=== PATIENT | male | born 1980 | race Caucasian/White ===

== ENCOUNTER 2016-07-27 13:53 | Outpatient (CLI) ==
[2016-07-27 18:44] VITALS: BMI 34.2
== END 2016-07-27 13:54 | disposition home or self-care (01) ==
LOC: AMBL 13:53
PROVIDERS: ATTEND Internal Medicine
DX: R07.9 Chest pain, unspecified (principal); R42 Dizziness and giddiness; R51 Headache

== ENCOUNTER 2016-07-27 14:04 | Observation (INO) ==
[2016-07-27] MEDS ORDERED: TRANDATE IVP STA (14:19)
[2016-07-27 14:29] LABS: BASOPHILS % (AUTO) 0.2 % (0.0-3.0); EOSINOPHILS # (AUTO) 0.2 K/ul (0.0-0.7); EOSINOPHILS % (AUTO) 3.2 % (0.0-7.0); HEMATOCRIT 42.8 % (42.0-52.0); HEMOGLOBIN 14.4 g/dl (14.0-18.0); IMMATURE GRANULOCYTE % (AUTO) 0.2 % (0.0-5.0); LYMPHOCYTES # (AUTO) 1.3 K/uL (0.60-3.4); LYMPHOCYTES % (AUTO) 27.9 (10.0-50.0); MEAN CORPUSCULAR HEMOGLOBIN 28.3 pg (27.0-31.0); MEAN CORPUSCULAR HGB CONC 33.6 (31.8-35.4); MEAN CORPUSCULAR VOLUME 84.1 fl (80.0-94.0); MONOCYTES # (AUTO) 0.3 K/uL (0.4-2.0); NEUTROPHILS # (AUTO) 2.9 K/ul (2.0-6.9); NEUTROPHILS % (AUTO) 62.5; PLATELET COUNT 169 10^3/uL (140-440); RED BLOOD COUNT 5.09 10^6/ul (4.70-6.10); WHITE BLOOD COUNT 4.69 K/ul (4.2-10.2)
--- NOTE | 2016-07-27 14:46 | DI ---
Examination: Single radiographic image of the chest. Comparison: 06/06/2016. Reason for study: Pain. FINDINGS: No pneumothorax, pleural effusion, focal consolidation. The cardiomediastinal silhouette is not enlarged. The partially imaged osseous structures of the chest are unremarkable. Impression: No acute cardiopulmonary findings.
[2016-07-27 15:04] LABS: ALBUMIN 3.6 g/dL (3.4-5.0); ALBUMIN/GLOBULIN RATIO 1.06; ANION GAP 12.8; BILIRUBIN,TOTAL 0.65 mg/dL (0.00-1.20); BUN/CREATININE RATIO 13.86; CREATININE 1.01 mg/dL (0.60-1.10); POTASSIUM 3.8 mmol/L (3.5-5.1); TROPONIN I 0.015 ng/ml (0.0000-0.4000)
[2016-07-27 15:06] LABS: CREATINE KINASE MB 3.1 ng/ml (0.0-3.6)
--- NOTE | 2016-07-27 16:52 | ED.PDOC ---
General ED Provider: Dr. JANET OSEI Chief Complaint: Chest Pain Stated Complaint: chest pain Time Seen by Physician: 14:00 Mode of Arrival: Ambulance Information Source: Patient, EMT Exam Limitations: No limitations Nursing and Triage Documentation Reviewed and Agree: Yes Cardiovascular Complaint Exam - Chest Pain Complaint/Exam Onset: Gradual Duration: today Symptoms Are: Still present Length of Chest Pain Episodes: 30 min Initial Severity: Moderate Current Severity: Mild Location: Reports: Discrete, Midsternal Character: Reports: Aching Aggravating: Reports: None Alleviating: Reports: None Associated Signs and Symptoms: Denies: Diaphoresis, Nausea, Vomiting, Fever, Palpitations, Cough, Hemoptysis, Back pain, Abdominal pain, Dizziness, Short of air, Calf pain, Calf swelling History of Healthcare-Acquired Pneumonia: Reports: No AMI/ACS Risk Factors: Reports: None TAD Risk Factors: Reports: None Pulmonary Embolism Risk Factors: Reports: None Prior Care for this Complaint: No Recent Stress Test: No Recent Echo/LV Function: No JVD Present: No Subcutaneous Emphysema Present: No Diminshed Breath Sounds: No Reproducible Chest Wall Pain: No Bilateral Pulses Present: No Unequal Pulses Noted: No If Risk Factors for AMI/ACS Consider: EKG, Cardiac Enzymes Review of Systems - Review Of Systems Constitutional: Reports: No symptoms Eyes: Reports: No symptoms Ears, Nose, Mouth, Throat: Reports: No symptoms Respiratory: Reports: No symptoms Cardiac: Reports: Chest pain GI: Reports: No symptoms : Reports: No symptoms Musculoskeletal: Reports: No symptoms Skin: Reports: No symptoms Neurological: Reports: No symptoms Endocrine: Reports: No symptoms Hematologic/Lymphatic: Reports: No symptoms All Other Systems: Reviewed and Negative Past Medical History - Past Medical History Endocrine: Reports: None Cardiovascular: Reports: None Respiratory: Reports: None Hematological: Reports: None Gastrointestinal: Reports: None Genitourinary: Reports: None Neuro/Psych: Reports: None Musculoskeletal: Reports: None Cancer: Reports: None - Surgical History General Surgical History: Reports: None - Family History Family History: Reports: None - Social History Smoking Status: Never smoker Hx Substance Use: No Alcohol Screening: None Physical Exam - Physical Exam Appearance: Well-appearing, No pain distress, Well-nourished Eyes: MERLE, EOMI, Conjunctiva clear ENT: Ears normal, Nose normal, Oropharynx normal Respiratory: Airway patent, Breath sounds clear, Breath sounds equal, Respirations nonlabored Cardiovascular: RRR, Pulses normal, No rub, No murmur GI/: Soft, Nontender, No masses, Bowel sounds normal, No Organomegaly Musculoskeletal: Normal strength, ROM intact, No edema, No calf tenderness Skin: Warm, Dry, Normal color Neurological: Sensation intact, Motor intact, Reflexes intact, Cranial nerves intact, Alert, Oriented Psychiatric: Affect appropriate, Mood appropriate Critical Care Note - Critical Care Note Total Time (mins): 0 Course - Course Hematology/Chemistry: 07/27/16 14:15 07/27/16 14:15 Orders, Labs, Meds: Lab Review 07/27/16 14:15 WBC 4.69 RBC 5.09 Hgb 14.4 Hct 42.8 MCV 84.1 MCH 28.3 MCHC 33.6 RDW Coeff of Karissa 12.3 Plt Count 169 Immature Gran % (Auto) 0.2 Neut % (Auto) 62.5 Lymph % (Auto) 27.9 Alcorn % (Auto) 6.0 Eos % (Auto) 3.2 Baso % (Auto) 0.2 Immature Gran # (Auto) 0.0 Neut # 2.9 Lymph # 1.3 Alcorn # 0.3 L Eos # 0.2 Baso # 0.0 D-Dimer < 0.19 L Sodium 141 Potassium 3.8 Chloride 106 Carbon Dioxide 26 Anion Gap 12.8 BUN 14 Creatinine 1.01 Estimated GFR (MDRD) 85.00 BUN/Creatinine Ratio 13.86 Glucose 95 Calcium 9.0 Total Bilirubin 0.65 AST 17 ALT 24 Alkaline Phosphatase 83 Total Creatine Kinase 163 CK-MB (CK-2) 3.1 CK-MB (CK-2) % 1.72912 Troponin I 0.0150 Total Protein 7.0 Albumin 3.6 Globulin 3.4 Albumin/Globulin Ratio 1.06 Orders Category Date Time Status PLACE PATIENT OBSERVATION .TO MEDSURG (MONITORED BED ADMISSION 07/27/16 16: 46 Ordered ) EKG-(ED ONLY) Stat CARDIO 07/27/16 14:18 Completed EKG-(IP & OP ONLY) DAILY CARDIO 07/28/16 06:00 Ordered EKG-(IP & OP ONLY) DAILY CARDIO 07/29/16 06:00 Ordered EKG-(IP & OP ONLY) DAILY CARDIO 07/30/16 06:00 Ordered ACTIVITY .BR with BRP CARE 07/27/16 16:46 Ordered INTAKE & OUTPUT Q8HR CARE 07/27/16 16:47 Ordered NOTIFY PHYSICIAN OF CONSULT ONCE CARE 07/27/16 16:49 Ordered NPO REMINDER: LAB TEST ONCE CARE 07/27/16 16:50 Ordered TELEMETRY MONITORING TELE CARE 07/27/16 16:47 Ordered VITAL SIGNS Q8HR CARE 07/27/16 16:46 Ordered CONSULT PHYSICIAN [PHYSICIAN CONSULTATION] [CONS] CONSULTS 07/27/16 16:48 Ordered Routine REGULAR DIET DIETARY 07/27/16 Lunch Ordered ED IV/MEDIPORT/POWERPORT .ONCE EMERGENCY 07/27/16 14:18 Active CBC W/ AUTO DIFF DAILY@0600 LAB 07/28/16 06:00 Ordered CBC W/ AUTO DIFF DAILY@0600 LAB 07/29/16 06:00 Ordered CBC W/ AUTO DIFF DAILY@0600 LAB 07/30/16 06:00 Ordered CBC W/ AUTO DIFF DAILY@0600 LAB 07/31/16 06:00 Ordered CBC W/ AUTO DIFF DAILY@0600 LAB 08/01/16 06:00 Ordered CBC W/ AUTO DIFF DAILY@0600 LAB 08/02/16 06:00 Ordered CBC W/ AUTO DIFF DAILY@0600 LAB 08/03/16 06:00 Ordered CBC W/ AUTO DIFF DAILY@0600 LAB 08/04/16 06:00 Ordered CBC W/ AUTO DIFF DAILY@0600 LAB 08/05/16 06:00 Ordered CBC W/ AUTO DIFF DAILY@0600 LAB 08/06/16 06:00 Ordered CBC W/ AUTO DIFF DAILY@0600 LAB 08/07/16 06:00 Ordered CBC W/ AUTO DIFF DAILY@0600 LAB 08/08/16 06:00 Ordered CBC W/ AUTO DIFF DAILY@0600 LAB 08/09/16 06:00 Ordered CBC W/ AUTO DIFF DAILY@0600 LAB 08/10/16 06:00 Ordered CBC W/ AUTO DIFF DAILY@0600 LAB 08/11/16 06:00 Ordered CBC W/ AUTO DIFF DAILY@0600 LAB 08/12/16 06:00 Ordered CBC W/ AUTO DIFF DAILY@0600 LAB 08/13/16 06:00 Ordered CBC W/ AUTO DIFF DAILY@0600 LAB 08/14/16 06:00 Ordered CBC W/ AUTO DIFF DAILY@0600 LAB 08/15/16 06:00 Ordered CBC W/ AUTO DIFF DAILY@0600 LAB 08/16/16 06:00 Ordered CBC W/ AUTO DIFF Stat LAB 07/27/16 14:15 Completed COMPREHENSIVE METABOLIC PANEL DAILY@0600 LAB 07/28/16 06:00 Ordered COMPREHENSIVE METABOLIC PANEL DAILY@0600 LAB 07/29/16 06:00 Ordered COMPREHENSIVE METABOLIC PANEL DAILY@0600 LAB 07/30/16 06:00 Ordered COMPREHENSIVE METABOLIC PANEL DAILY@0600 LAB 07/31/16 06:00 Ordered COMPREHENSIVE METABOLIC PANEL DAILY@0600 LAB 08/01/16 06:00 Ordered COMPREHENSIVE METABOLIC PANEL DAILY@0600 LAB 08/02/16 06:00 Ordered COMPREHENSIVE METABOLIC PANEL DAILY@0600 LAB 08/03/16 06:00 Ordered COMPREHENSIVE METABOLIC PANEL DAILY@0600 LAB 08/04/16 06:00 Ordered COMPREHENSIVE METABOLIC PANEL DAILY@0600 LAB 08/05/16 06:00 Ordered COMPREHENSIVE METABOLIC PANEL DAILY@0600 LAB 08/06/16 06:00 Ordered COMPREHENSIVE METABOLIC PANEL DAILY@0600 LAB 08/07/16 06:00 Ordered COMPREHENSIVE METABOLIC PANEL DAILY@0600 LAB 08/08/16 06:00 Ordered COMPREHENSIVE METABOLIC PANEL DAILY@0600 LAB 08/09/16 06:00 Ordered COMPREHENSIVE METABOLIC PANEL DAILY@0600 LAB 08/10/16 06:00 Ordered COMPREHENSIVE METABOLIC PANEL DAILY@0600 LAB 08/11/16 06:00 Ordered COMPREHENSIVE METABOLIC PANEL DAILY@0600 LAB 08/12/16 06:00 Ordered COMPREHENSIVE METABOLIC PANEL DAILY@0600 LAB 08/13/16 06:00 Ordered COMPREHENSIVE METABOLIC PANEL DAILY@0600 LAB 08/14/16 06:00 Ordered COMPREHENSIVE METABOLIC PANEL DAILY@0600 LAB 08/15/16 06:00 Ordered COMPREHENSIVE METABOLIC PANEL DAILY@0600 LAB 08/16/16 06:00 Ordered COMPREHENSIVE METABOLIC PANEL Stat LAB 07/27/16 14:15 Completed CREATINE KINASE Q8H LAB 07/27/16 23:00 Ordered CREATINE KINASE Q8H LAB 07/28/16 07:00 Ordered CREATINE KINASE Stat LAB 07/27/16 14:15 Completed D-DIMER Stat LAB 07/27/16 14:15 Completed LIPID PANEL Timed LAB 07/28/16 06:00 Ordered TROPONIN I Q8H LAB 07/27/16 23:00 Ordered TROPONIN I Q8H LAB 07/28/16 07:00 Ordered TROPONIN I Stat LAB 07/27/16 14:15 Completed 0.9 % Sodium Chloride [Saline Flush] MEDS 07/27/16 14:18 Active 1 syr IVF PRN PRN Labetalol HCl [Trandate] MEDS 07/27/16 14:19 Discontinued 20 mg IVP ONCE STA Sodium Chloride 0.9% [Sodium Chloride] 1,000 ml MEDS 07/27/16 17:00 Ordered IV 75 mls/hr CHEST, 1V AP ONLY Stat RADS 07/27/16 14:18 Completed Medications Generic Name Dose Route Start Last Admin Trade Name Freq PRN Reason Stop Dose Admin Sodium Chloride 1,000 mls @ 75 mls/hr 07/27/16 17:00 Sodium Chloride IV .[id number] ELLIE Sodium Chloride 1 syr 07/27/16 14:18 Saline Flush IVF PRN PRN To flush IV Discontinued Medications Generic Name Dose Route Start Last Admin Trade Name Freq PRN Reason Stop Dose Admin Labetalol HCl 20 mg 07/27/16 14:19 07/27/16 14:48 Trandate IVP 07/27/16 14:20 Not Given ONCE STA Vital Signs: Temp Pulse Resp BP Pulse Ox 07/27/16 14:05 98.0 F 80 16 192/103 H 97 BRYANT Risk Score BRYANT Risk Score: Risk Score Odds of by 30D 0 0.1 (0.1-0.2) 1 0.3 (0.2-0.3) 2 0.4 (0.3-0.5) 3 0.7 (0.6-0.9) 4 1.2 (1.0-1.5) 5 2.2 (1.9-2.6) 6 3.0 (2.5-3.6) 7 4.8 (3.8-6.1) Departure - Departure Time of Disposition: 17:01 Disposition: HOME SELF-CARE Discharge Problem: Chest pain Instructions: Angina (ED) Condition: Good Pt referred to PMD for follow-up: No Allergies/Adverse Reactions: Allergies No Known Allergies Allergy (Verified 07/27/16 14:11) Disposition Discussed With: Patient
[2016-07-27] MEDS ORDERED: SODIUM CHLORIDE 1,000 ML IV SCH (17:00)
[2016-07-27 18:44] VITALS: BMI 34.2
[2016-07-27 23:34] LABS: TROPONIN I 0.011 ng/ml (0.0000-0.4000)
[2016-07-27 23:35] LABS: CREATINE KINASE MB 2.9 ng/ml (0.0-3.6)
[2016-07-27 23:45] VITALS: BP 136/91; TEMP 97.2
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
--- NOTE | 2016-08-26 10:17 | AMA ---
DATE OF VISIT: 07/27/16 PATIENT IDENTIFICATION: 36 year old male claimed to have had experienced sharp stabbing pain of a few seconds duration midsternal chest with repeated occurrence during the night. He was unable to sleep because of the sharp, stabbing pain. He claimed that there was a lot of stress surrounding his family. He was evaluated in the emergency room and the studies were negative consisting of a normal CKMB, normal Troponin and unremarkable chest x- ray. EKG was unremarkable and repeat EKG showed no remarkable changes. PHYSICAL EXAMINATION: Revealed an alert individual who was cooperative and his history centers about the problems in his family. LUNGS: Clear to auscultation in both sides and no rales or wheezing. HEART: Audible and regular with good tones and no murmurs. LOWER EXTREMITIES: Tibial pulses are present. The patient was placed on telemetry. However, the patient in the course of his admission decided to go home for various reasons. I had talked to the nurse to try to keep him until we will be able to test him the next day consisting with stress echocardiogram by the stage rigger. The patient, however, insisted on going home. My conversation was with the nurse that if he insists that then he should go home, but he should either come back to the emergency room if he would have further problems and if not see his provider the next day. The patient did sign out during the night and when I made rounds the following day, the patient did go home before midnight on 07/27/16. FINAL DIAGNOSIS: 1. ATYPICAL CHEST PAIN 2. HISTORY OF HYPERTENSION 3. MARKEDLY ELEVATED BMI 4. ACUTE AND CHRONIC SITUATIONAL STRESS SYNDROME MTDD
== END 2016-07-27 23:39 | disposition left against medical advice (07) ==
LOC: ED 14:04 → MEDSURG A 16:55
PROVIDERS: ADMIT General Practice; ATTEND General Practice
DX: R07.9 Chest pain, unspecified (principal); I10 Essential (primary) hypertension; F43.8 Other reactions to severe stress; E66.9 Obesity, unspecified; Z68.34 Body mass index [BMI] 34.0-34.9, adult; Z79.899 Other long term (current) drug therapy
CPT/HCPCS: 36415; 80053; 82550; 82553; 84484; 85025; 85379; 93005; 93010; 96360; 96361; 99235; 99284

== ENCOUNTER 2016-09-09 13:03 | Emergency (ER) ==
[2016-09-09 13:16] VITALS: BP 140/95; TEMP 98.9; BMI 26.6
--- NOTE | 2016-09-09 13:36 | ED.PDOC ---
General ED Provider: Dr. SHABBIR COREAS Chief Complaint: Fever Stated Complaint: Fever, cough, chills, tired, nausea, vomiting Time Seen by Physician: 13:34 Mode of Arrival: Walk-In Information Source: Patient Nursing and Triage Documentation Reviewed and Agree: Yes Review of Systems - Review Of Systems Constitutional: Reports: Chills, Fever, Malaise, Weakness, Sweats Ears, Nose, Mouth, Throat: Reports: Ear pain (Right ear pain; worse with swallowing), Throat pain (sore throat) Respiratory: Reports: Cough GI: Reports: Diarrhea, Nausea (4 times today) Musculoskeletal: Reports: Muscle pain Skin: Reports: No symptoms Neurological: Reports: Headache All Other Systems: Reviewed and Negative Past Medical History - Past Medical History Previously Healthy: Yes Endocrine: Reports: None Cardiovascular: Reports: None Respiratory: Reports: None Hematological: Reports: None Gastrointestinal: Reports: None Genitourinary: Reports: None Neuro/Psych: Reports: None Musculoskeletal: Reports: None Cancer: Reports: None - Surgical History General Surgical History: Reports: None - Family History Family History: Reports: None - Social History Smoking Status: Never smoker Hx Substance Use: No Alcohol Screening: None - Immunizations Tetanus Shot up to Date: Yes Physical Exam - Physical Exam Appearance: Ill-appearing Ill-appearing: Moderate Pain Distress: Mild Eyes: MERLE, EOMI ENT: Ears normal (L TM WNL; R TM with mild erythema) Neck: Supple Respiratory: Airway patent, Breath sounds clear, Breath sounds equal, Respirations nonlabored Cardiovascular: RRR GI/: Soft Musculoskeletal: Normal strength, ROM intact Skin: Warm, Dry, Normal color Neurological: Sensation intact, Motor intact, Alert, Oriented Psychiatric: Affect appropriate, Mood appropriate Critical Care Note - Critical Care Note Total Time (mins): 10 Course - Course Orders, Labs, Meds: Lab Review 09/09/16 13:30 Influenza A (Rapid) Negative Influenza B (Rapid) Negative Orders Category Date Time Status MOLECULAR GROUP A STREP Stat LAB 09/09/16 13:30 Results RAPID FLU A/B Stat LAB 09/09/16 13:30 Completed STREP SCREEN Stat LAB 09/09/16 13:30 Results CHEST, 2 VIEWS PA & LAT Stat RADS 09/09/16 13:41 Completed Strep reported Negative Vital Signs: Temp Pulse Resp BP Pulse Ox 09/09/16 13:05 98.9 F 69 24 140/95 H 96 Departure - Departure Time of Disposition: 14:49 Disposition: HOME SELF-CARE Discharge Problem: Flu syndrome Instructions: Analgesic/Decongestant (By mouth) Condition: Stable Pt referred to PMD for follow-up: Yes (Follow up with primary care; call for appointment) Additional Instructions: Tylenol and or Ibuprofen as for fever or discomfort; use nausea medications as prescribed. Prescriptions: Ondansetron [Zofran Odt] 4 mg PO Q6HR PRN #10 tab.rapdis PRN Reason: Nausea / Vomiting Acetaminophen [Tylenol] 500 mg PO Q6H #20 tablet Allergies/Adverse Reactions: Allergies No Known Allergies Allergy (Verified 07/27/16 14:11) Home Medications: Ambulatory Orders Acetaminophen [Tylenol] 500 mg PO Q6H #20 tablet 09/09/16 Estradiol 1 mg PO DAILY 09/09/16 Ondansetron [Zofran Odt] 4 mg PO Q6HR PRN #10 tab.rapdis 09/09/16 Spironolactone 25 mg PO DAILY 09/09/16 Disposition Discussed With: Patient
[2016-09-09 13:58] LABS: FLU INTERNAL QC INTERNAL QC VALID; RAPID FLU A NEGATIVE (NEGATIVE); RAPID FLU B NEGATIVE (NEGATIVE)
--- NOTE | 2016-09-09 14:38 | DI ---
Examination: Two radiographic images of the chest. Comparison: 07/27/2016. Reason for study: Cough. FINDINGS: No pneumothorax, pleural effusion, or focal consolidation. The cardiac silhouette is not enlarged. Impression: No acute cardiopulmonary findings.
== END 2016-09-09 15:13 | disposition home or self-care (01) ==
LOC: ED 13:03
DX: R50.9 Fever, unspecified (principal); R05 Cough; R11.2 Nausea with vomiting, unspecified; R53.83 Other fatigue; R19.7 Diarrhea, unspecified; R51 Headache
CPT/HCPCS: 87651; 87804; 87880; 99283